=== PATIENT | male | born 1945 | race Caucasian/White ===

== ENCOUNTER 2018-04-16 07:42 | Day surgery (SDC) | payer OTHER ==
[~2018-04-16] VITALS: Ht 167.6 cm; Wt 103.8 kg
[~2018-04-16 07:42] MED LIST: METF500T4 PO; METO1TAB7 PO; PRAV40TA2 PO; PROPOFOL 200 MG/20 ML VIAL As Ordered ONE; SLEE25TA PO; XARE20TA PO
[2018-04-16] MEDS ORDERED: LIDOCAINE 2% INJ 100 MG/5 ML SDV (FOR ANES.) As Ordered ONE (07:50)
[2018-04-16] MEDS ORDERED: NS 1,000 ML IV SCH (08:00)
[2018-04-16] MEDS ORDERED: PROPOFOL 200 MG/20 ML VIAL As Ordered ONE (08:31)
--- NOTE | 2018-04-16 08:45 | ROOR ---
Patient Name: Harry Hernandez Procedure Date: 04/16/2018 8:17 AM Date of : 1945 Age: 72 Room: [facility] Gender: Male Note Status: Finalized Procedure: Total Colonoscopy to Cecum + Hot Snare Polypectomy + Hemoclips. Indications: High risk colon cancer surveillance: Personal history of colonic polyps, Last colonoscopy: 2014 Providers: Kg Napier MD Referring MD: Warren Jones MD Requesting Provider: Medicines: Monitored Anesthesia Care Complications: No immediate complications. Procedure: Pre-Anesthesia Assessment: - The heart rate, respiratory rate, oxygen saturations, blood pressure, adequacy of pulmonary ventilation, and response to care were monitored throughout the procedure. The Colonoscope was introduced through the anus and advanced to the cecum, identified by appendiceal orifice and ileocecal valve. The colonoscopy was performed without difficulty. The patient tolerated the procedure well. The quality of the bowel preparation was excellent. Findings: The perianal and digital rectal examinations were normal. Non-bleeding internal hemorrhoids were found during retroflexion. The hemorrhoids were small and Grade I (internal hemorrhoids that do not prolapse). Multiple small and large-mouthed diverticula were found in the recto-sigmoid colon, sigmoid colon and descending colon. A medium polyp was found in the ascending colon. The polyp was semi-pedunculated. The polyp was removed with a hot snare. Resection and retrieval were complete. To prevent bleeding after the polypectomy, two hemostatic clips were successfully placed (MR conditional). There was no bleeding at the end of the procedure. The exam was otherwise without abnormality on direct and retroflexion views. Impression: - Non-bleeding internal hemorrhoids. - Diverticulosis in the recto-sigmoid colon, in the sigmoid colon and in the descending colon. - One medium polyp in the ascending colon, removed with a hot snare. Resected and retrieved. Clips (MR conditional) were placed. - The examination was otherwise normal on direct and retroflexion views. - The exam was otherwise normal to the cecum. Recommendation: - Patient has a contact number available for emergencies. The signs and symptoms of potential delayed complications were discussed with the patient. Return to normal activities tomorrow. Written discharge instructions were provided to the patient. - High fiber diet. - Discharge patient to home. - Continue present medications. - Resume Xarelto (rivaroxaban) at prior dose today. - Await pathology results. - Telephone GI clinic for pathology results in 1 week. - Repeat colonoscopy in 5 years for surveillance based on pathology results. - Return to referring physician. - The findings and recommendations were discussed with the patient's family. gK Napier MD Kg Napier MD 04/16/2018 8:45:27 AM This report has been signed electronically. Number of Addenda: 0 Note Initiated On: 04/16/2018 8:17 AM Estimated Blood Loss: Estimated blood loss: none.
[2018-04-16 09:05] VITALS: BP 145/84
== END 2018-04-16 09:18 | disposition home or self-care (01) ==
LOC: M OPP 07:42
PROVIDERS: ATTEND Internal Medicine Gastroenterology
DX: Z12.11 Encounter for screening for malignant neoplasm of colon (principal); Z86.010 Personal history of colon polyps; K64.0 First degree hemorrhoids; D12.2 Benign neoplasm of ascending colon; K57.30 Diverticulosis of large intestine without perforation or abscess without bleeding; E11.9 Type 2 diabetes mellitus without complications; G47.30 Sleep apnea, unspecified; I48.91 Unspecified atrial fibrillation; Z79.84 Long term (current) use of oral hypoglycemic drugs; Z79.899 Other long term (current) drug therapy

== ENCOUNTER 2018-06-18 03:35 | Emergency (ER) | payer OTHER ==
[~2018-06-18] VITALS: Ht 167.6 cm; Wt 102.3 kg
[~2018-06-18 03:35] MED LIST changes: -PROPOFOL 200 MG/20 ML VIAL As Ordered ONE
[2018-06-18] MEDS ORDERED: METF-839 PO (03:44)
[2018-06-18] MEDS ORDERED: NON-325T5 PO (03:46)
[2018-06-18] MEDS ORDERED: ACETAMINOPHEN 325 MG TAB PO ONE (04:00)
[2018-06-18 04:24] LABS: INFLUENZA A AMPLIFICATION POSITIVE (NEGATIVE); INFLUENZA B AMPLIFICATION NEGATIVE (NEGATIVE)
[2018-06-18] MEDS ORDERED: IPRATROPIUM 0.5MG/ALBUTEROL 2.5MG INH SOL UD 3ML (DUONEB)(J7620) As Ordered ONE (05:09)
[2018-06-18] MEDS ORDERED: IPRATROPIUM 0.5MG/ALBUTEROL 2.5MG INH SOL UD 3ML (DUONEB)(J7620) NEB ONE (05:15)
[2018-06-18] MEDS ORDERED: PRED20TA PO (05:53)
[2018-06-18] MEDS ORDERED: OSEL75CA PO (05:53)
[2018-06-18] MEDS ORDERED: OSELTAMIVIR PHOSPHATE 75 MG CAP (TAMIFLU) PO ONE (06:00)
[2018-06-18] MEDS ORDERED: methylPREDNISolone INJ 125 MG/2 ML VIAL (J2930) IM ONE (06:00)
[2018-06-18] MEDS: IPRATROPIUM 0.5MG/ALBUTEROL 2.5MG INH SOL UD 3ML (DUONEB)(J7620) NEB SCH (06:05)
[2018-06-18 06:29] VITALS: BP 124/60
--- NOTE | 2018-06-18 07:33 | REP ---
PA and lateral chest: Comparison is 07/06/2008. The the lung momin are clear. The cardiac size is normal. The ap, mediastinum, and skeletal structures are unremarkable. Impression: Negative PA and lateral chest. No interval change. Electronically Signed by Paul Quach MD 06/18/2018 07:24 A
== END 2018-06-18 06:31 | disposition home or self-care (01) ==
LOC: M ED 03:35
DX: J09.X2 Influenza due to identified novel influenza A virus with other respiratory manifestations (principal); J20.9 Acute bronchitis, unspecified; I48.91 Unspecified atrial fibrillation; E11.9 Type 2 diabetes mellitus without complications; Z79.84 Long term (current) use of oral hypoglycemic drugs; Z79.899 Other long term (current) drug therapy
CPT/HCPCS: 71046; 87502; 96372; 99284; J2930

== ENCOUNTER → 2020-01-26 | Outpatient (CLI) | payer OTHER ==
[~2020-01-26] MED LIST changes: +ACET-838 PO; +METF-838 PO; +METF-839 PO; -METF500T4 PO; +OSEL75CA PO; +PRED20TA PO
== END ==
LOC: M LABSMTC 12:59
PROVIDERS: ATTEND Ophthalmology
DX: Z20.828 Contact with and (suspected) exposure to other viral communicable diseases (principal)

== ENCOUNTER → 2020-10-11 | Outpatient (CLI) | payer OTHER ==
[~2020-10-11] MED LIST changes: -ACET-838 PO; +ACET32TAB PO
--- NOTE | 2020-10-12 11:50 | REPVR ---
PROCEDURE INFORMATION: Exam: MR Cervical Spine Without Contrast Exam date and time: 10/11/2020 7:44 AM Age: 75 years old Clinical indication: Neck pain; Disc degeneration TECHNIQUE: Imaging protocol: Multiplanar magnetic resonance images of the cervical spine without contrast. COMPARISON: CR Chest, 2 view PA, Lat 06/18/2018 5:36 AM FINDINGS: Vertebrae: There are large multilevel anterior marginal osteophytes, most marked from C4-C7. Spinal cord: Normal signal. Moderate deformity of the cervical cord at C4/5. C2-C3: There is disc desiccation. There is bilateral uncovertebral joint arthropathy, worse on the right. There is moderate right-sided neuroforaminal narrowing. C3-C4: There is disc space narrowing and desiccation. There are moderate degenerative end plate changes at this level. There is a moderate disc/osteophyte complex that flattens the ventral thecal sac. There is moderate bilateral uncovertebral joint arthropathy. There is moderate bilateral neural foraminal narrowing. There is mild spinal canal stenosis. C4-C5: There is disc space narrowing and desiccation. There are moderate degenerative end plate changes at this level. There is a moderate disc/osteophyte complex that flattens the ventral thecal sac. There is effacement of the ventral subarachnoid space and indentation of the ventral cervical cord. There is a small central disc protrusion. There is bilateral uncovertebral joint arthropathy, worse on the left. There is moderate/severe bilateral neural foraminal narrowing, left worse than right. There is moderate spinal canal stenosis. C5-C6: There is a moderate disc/osteophyte complex, partial toward the right, that flattens the ventral thecal sac and compromises the right neural foramen. There is effacement of the ventral subarachnoid space and indentation of the ventral cervical cord. There is moderate bilateral uncovertebral joint arthropathy. There is mild bilateral neuroforaminal narrowing. There is moderate spinal canal stenosis. C6-C7: There is disc space narrowing and desiccation. There are moderate degenerative end plate changes at this level. There is a moderate disc/osteophyte complex that flattens the ventral thecal sac. There is a small central disc protrusion. There is moderate bilateral uncovertebral joint arthropathy. There is moderate bilateral neural foraminal narrowing, left worse than right. There is mild/moderate spinal canal stenosis. There is high signal abnormality within the C4/5, C5/6, and C6/C7 disc spaces on the inversion recovery sequence. The appearance is most consistent with chronic degenerative changes. C7-T1: No significant disc disease. No significant spinal stenosis. Soft tissues: Unremarkable. IMPRESSION: 1. Multilevel degenerative changes causing varying degrees of spinal canal and neuroforaminal narrowing. Spinal canal stenosis is most severe at C4/5. Please see details above. 2. There is high signal abnormality within the C4/5, C5/6, and C6/C7 disc spaces on the inversion recovery sequence. The appearance is most consistent with chronic degenerative changes. Early disc space infection may have this appearance although this is felt to be much less likely. Please correlate clinically. Electronically signed by: George Moyer On 10/12/2020 11:50:01 AM
== END ==
LOC: M PLAIMG 07:41
PROVIDERS: ATTEND Physician Assistant
DX: M50.321 Other cervical disc degeneration at C4-C5 level (principal); M25.78 Osteophyte, vertebrae

== ENCOUNTER → 2021-03-24 | Outpatient (CLI) | payer OTHER ==
[~2021-03-24] MED LIST changes: +GABA-282 PO; +TAMS1CAP17 PO
== END ==
LOC: M LABSMTC 12:55
PROVIDERS: ATTEND Internal Medicine Gastroenterology
DX: Z01.812 Encounter for preprocedural laboratory examination (principal); Z20.822 Contact with and (suspected) exposure to COVID-19

== ENCOUNTER 2021-03-29 10:16 | Day surgery (SDC) | payer OTHER ==
[~2021-03-29] VITALS: Ht 167.6 cm; Wt 103.0 kg
[~2021-03-29 10:16] MED LIST changes: +NS 1,000 ML IV ONE
[2021-03-29] MEDS ORDERED: propofoL 200 MG/20 ML VIAL As Ordered ONE ×2 (11:54→12:11)
[2021-03-29] MEDS ORDERED: LIDOCAINE 2% 100MG/5ML SDV (FOR ANES.) As Ordered ONE (11:54)
[2021-03-29 12:40] VITALS: BP 140/94
== END 2021-03-29 12:45 | disposition home or self-care (01) ==
LOC: M OPP 10:16
PROVIDERS: ATTEND Internal Medicine Gastroenterology
DX: Z12.11 Encounter for screening for malignant neoplasm of colon (principal); Z86.010 Personal history of colon polyps; D12.6 Benign neoplasm of colon, unspecified; K57.30 Diverticulosis of large intestine without perforation or abscess without bleeding; K64.0 First degree hemorrhoids; Z79.84 Long term (current) use of oral hypoglycemic drugs; Z79.899 Other long term (current) drug therapy

== ENCOUNTER → 2021-07-06 | Outpatient (REF) | payer OTHER ==
[~2021-07-06] MED LIST changes: -NS 1,000 ML IV ONE
[2021-07-06 13:56] LABS: CRYSTALS, BODY FLUID NONE SEEN (NONE SEEN); SOURCE, BODY FLUID CRYSTALS RT KNEE; SOURCE, BODY FLUID GLUCOSE RT KNEE
[2021-07-06 14:06] LABS: SOURCE, BODY FLUID RT KNEE; SYNOVIAL FLUID COLOR YELLOW (COLORLESS)
== END ==
LOC: M LAB REF 13:03
PROVIDERS: ATTEND Physician Assistant
DX: M17.11 Unilateral primary osteoarthritis, right knee (principal)

== ENCOUNTER → 2021-07-07 | Outpatient (REF) | payer OTHER | LOC: M LAB REF 16:02 | PROVIDERS: ATTEND Family Medicine | DX: M17.11 Unilateral primary osteoarthritis, right knee (principal) ==

== ENCOUNTER → 2021-07-14 | Outpatient (CLI) | payer OTHER | LOC: M SOG 11:28 | PROVIDERS: ATTEND Orthopaedic Surgery | DX: M25.761 Osteophyte, right knee (principal); M25.762 Osteophyte, left knee; M25.562 Pain in left knee; M25.561 Pain in right knee ==

== ENCOUNTER → 2022-01-02 | Outpatient (CLI) | payer OTHER | LOC: M SOG 14:39 | PROVIDERS: ATTEND Orthopaedic Surgery | DX: M17.0 Bilateral primary osteoarthritis of knee (principal) ==

== ENCOUNTER → 2022-07-10 | Outpatient (REF) | payer OTHER ==
[2022-07-10 17:23] LABS: PERCENT SATURATION 14.6 % (19.7-50.0)
[2022-07-10 17:26] LABS: FERRITIN 39.9 NG/ML (10.5-307.3)
== END ==
LOC: M LAB REF 16:17
PROVIDERS: ATTEND Family Medicine
DX: D64.9 Anemia, unspecified (principal)

== ENCOUNTER → 2023-07-31 | Outpatient (CLI) | payer OTHER, MEDICARE ==
[~2023-07-31] MED LIST changes: +ALFU10TA3 PO; +CVS50CAP PO; +PERC5TAB12 PO
== END ==
LOC: M SOG 08:06
PROVIDERS: ATTEND Orthopaedic Surgery
DX: M54.2 Cervicalgia (principal); R93.7 Abnormal findings on diagnostic imaging of other parts of musculoskeletal system; M41.86 Other forms of scoliosis, lumbar region

== ENCOUNTER → 2023-08-08 | Outpatient (CLI) | payer OTHER, MEDICARE | LOC: M PLARAD 13:33 | PROVIDERS: ATTEND Orthopaedic Surgery | DX: M47.812 Spondylosis without myelopathy or radiculopathy, cervical region (principal); M25.78 Osteophyte, vertebrae ==

== ENCOUNTER 2023-08-26 09:36 | Day surgery (SDC) | payer OTHER, MEDICARE ==
[~2023-08-26] VITALS: Ht 167.6 cm; Wt 92.1 kg
[~2023-08-26 09:36] MED LIST changes: +NS 1,000 ML IV ONE
[2023-08-26] MEDS ORDERED: LIDOCAINE 2% 100MG/5ML SDV (FOR ANES.) As Ordered ONE (11:10)
[2023-08-26] MEDS ORDERED: propofoL 200 MG/20 ML VIAL As Ordered ONE (11:15)
[2023-08-26 11:34] VITALS: TEMP 98.1
[2023-08-26 11:53] VITALS: BP 169/96; O2SAT 97
== END 2023-08-26 12:02 | disposition home or self-care (01) ==
LOC: M OPP 09:36
PROVIDERS: ATTEND Internal Medicine Gastroenterology
DX: Z12.11 Encounter for screening for malignant neoplasm of colon (principal); Z86.010 Personal history of colon polyps; D12.6 Benign neoplasm of colon, unspecified; K57.30 Diverticulosis of large intestine without perforation or abscess without bleeding; K64.0 First degree hemorrhoids; I48.91 Unspecified atrial fibrillation; E11.9 Type 2 diabetes mellitus without complications; G47.30 Sleep apnea, unspecified; Z99.89 Dependence on other enabling machines and devices; Z79.02 Long term (current) use of antithrombotics/antiplatelets; Z79.1 Long term (current) use of non-steroidal anti-inflammatories (NSAID); Z79.84 Long term (current) use of oral hypoglycemic drugs; Z79.891 Long term (current) use of opiate analgesic; Z79.899 Other long term (current) drug therapy

== ENCOUNTER → 2023-09-23 | Outpatient (CLI) | payer OTHER ==
[~2023-09-23] MED LIST changes: +ALFU10TA23 PO; -ALFU10TA3 PO; -NS 1,000 ML IV ONE
== END ==
LOC: M PAIN 13:00
PROVIDERS: ATTEND Nurse Practitioner Family
DX: M50.10 Cervical disc disorder with radiculopathy, unspecified cervical region (principal); M48.02 Spinal stenosis, cervical region; G89.29 Other chronic pain; I48.91 Unspecified atrial fibrillation; E11.9 Type 2 diabetes mellitus without complications; E78.00 Pure hypercholesterolemia, unspecified; Z79.84 Long term (current) use of oral hypoglycemic drugs; Z79.01 Long term (current) use of anticoagulants; Z79.899 Other long term (current) drug therapy

== ENCOUNTER → 2023-10-25 | Outpatient (CLI) | payer OTHER ==
[~2023-10-25] MED LIST changes: +ISOVUE-M 300 61% 15ML VIAL As Ordered ONE; +LIDOCAINE 1% SDV 30ML VIAL As Ordered ONE; +NORCO, ANEXSIA 5/325MG TABLET (HYDROcodone/ACETAMINOPHEN) As Ordered ONE; +dexAMETHasone 10MG/1ML VIAL PRES.FREE As Ordered ONE; +diazePAM 5MG TABLET As Ordered ONE
== END ==
LOC: M PAIN 12:30
PROVIDERS: ATTEND Anesthesiology
DX: M50.23 Other cervical disc displacement, cervicothoracic region (principal); G89.29 Other chronic pain; I48.91 Unspecified atrial fibrillation; E11.9 Type 2 diabetes mellitus without complications; E78.00 Pure hypercholesterolemia, unspecified; Z79.01 Long term (current) use of anticoagulants; Z79.84 Long term (current) use of oral hypoglycemic drugs; Z79.899 Other long term (current) drug therapy
CPT/HCPCS: 62321; J1100; Q9967

== ENCOUNTER → 2023-12-13 | Outpatient (CLI) | payer OTHER ==
[~2023-12-13] MED LIST changes: +GABA-1172 PO; -GABA-282 PO; -ISOVUE-M 300 61% 15ML VIAL As Ordered ONE; -LIDOCAINE 1% SDV 30ML VIAL As Ordered ONE; -NORCO, ANEXSIA 5/325MG TABLET (HYDROcodone/ACETAMINOPHEN) As Ordered ONE; -dexAMETHasone 10MG/1ML VIAL PRES.FREE As Ordered ONE; -diazePAM 5MG TABLET As Ordered ONE
== END ==
LOC: M PAIN 16:00
PROVIDERS: ATTEND Nurse Practitioner Family
DX: G89.29 Other chronic pain (principal); M25.512 Pain in left shoulder; M50.10 Cervical disc disorder with radiculopathy, unspecified cervical region; I48.91 Unspecified atrial fibrillation; E11.9 Type 2 diabetes mellitus without complications; E78.00 Pure hypercholesterolemia, unspecified; Z79.84 Long term (current) use of oral hypoglycemic drugs; Z79.01 Long term (current) use of anticoagulants; Z79.899 Other long term (current) drug therapy

== ENCOUNTER → 2023-12-16 | Outpatient (CLI) | payer OTHER, MEDICARE | LOC: M RAD 10:57 | PROVIDERS: ATTEND Nurse Practitioner Family | DX: M19.012 Primary osteoarthritis, left shoulder (principal) ==

== ENCOUNTER 2024-01-22 12:58 | Outpatient (RCR) | payer OTHER, MEDICARE | END 2024-02-01 | LOC: M PT 12:58 | PROVIDERS: ATTEND Nurse Practitioner Family | DX: M25.512 Pain in left shoulder (principal) ==

== ENCOUNTER 2024-02-21 15:00 | Outpatient (RCR) | payer OTHER, MEDICARE | END 2024-03-03 | LOC: M PT 15:00 | PROVIDERS: ATTEND Nurse Practitioner Family | DX: M25.512 Pain in left shoulder (principal) ==

== ENCOUNTER → 2024-03-12 | Outpatient (CLI) | payer OTHER | LOC: M PAIN 15:00 | PROVIDERS: ATTEND Nurse Practitioner Family | DX: G89.29 Other chronic pain (principal); M25.512 Pain in left shoulder; M50.10 Cervical disc disorder with radiculopathy, unspecified cervical region; I48.91 Unspecified atrial fibrillation; E11.9 Type 2 diabetes mellitus without complications; E78.00 Pure hypercholesterolemia, unspecified; G47.33 Obstructive sleep apnea (adult) (pediatric); Z79.01 Long term (current) use of anticoagulants; Z79.84 Long term (current) use of oral hypoglycemic drugs; Z79.899 Other long term (current) drug therapy ==

== ENCOUNTER 2024-03-30 13:27 | Outpatient (RCR) | payer OTHER, MEDICARE | END 2024-04-03 | LOC: M PT 13:27 | PROVIDERS: ATTEND Physician Assistant | DX: M25.512 Pain in left shoulder (principal) ==